=== PATIENT | female | born 1975 | race African-American/Black ===

== ENCOUNTER 2018-09-06 13:29 | Emergency (ER) | payer OTHER ==
[~2018-09-06] VITALS: Ht 167.6 cm; Wt 74.8 kg
[~2018-09-06 13:29] MED LIST: PREN-59
[2018-09-06 14:19] VITALS: BP 116/69
[2018-09-06] MEDS ORDERED: KETOROLAC TROMETHAMINE INJ 30 MG/ML VIAL ONE (17:58)
[2018-09-06] MEDS ORDERED: KETOROLAC TROMETHAMINE INJ 60 MG/2 ML VIAL IM ONE (18:00)
--- NOTE | 2018-09-06 18:00 | NUR ---
PENDING HCG BEFORE TORADOL ADMIN
== END 2018-09-06 18:33 | disposition home or self-care (01) ==
LOC: ER 13:33
DX: S33.9XXA Sprain of unspecified parts of lumbar spine and pelvis, initial encounter (principal); X58.XXXA Exposure to other specified factors, initial encounter; Y93.89 Activity, other specified; Y92.89 Other specified places as the place of occurrence of the external cause; Y99.8 Other external cause status
CPT/HCPCS: 84703; 96372; 99283; A4606; J1885; Z7610

== ENCOUNTER 2019-01-17 15:21 | Emergency (ER) | payer MEDICAID, OTHER ==
[~2019-01-17] VITALS: Ht 162.6 cm; Wt 61.2 kg
[2019-01-17 15:21] VITALS: BP 105/69
== END 2019-01-17 17:34 | disposition home or self-care (01) ==
LOC: ER 15:25
DX: M54.6 Pain in thoracic spine (principal); G89.29 Other chronic pain

== ENCOUNTER 2019-01-25 14:41 | Emergency (ER) | payer MEDICAID ==
[~2019-01-25] VITALS: Ht 160 cm; Wt 66.7 kg
[2019-01-25 14:59] VITALS: BP 114/70
--- NOTE | 2019-01-25 16:06 | NUR ---
Patient discharged to home in stable condition. Written and verbal after care instructions given. Patient verbalizes understanding of instruction.
== END 2019-01-25 16:08 | disposition home or self-care (01) ==
LOC: ER 14:44
DX: M48.02 Spinal stenosis, cervical region (principal); M51.27 Other intervertebral disc displacement, lumbosacral region; G89.29 Other chronic pain

== ENCOUNTER 2019-01-30 16:45 | Emergency (ER) | payer MEDICAID ==
[~2019-01-30] VITALS: Ht 160 cm; Wt 67.1 kg
[2019-01-30 17:15] VITALS: BP 118/79
== END 2019-01-30 18:43 | disposition home or self-care (01) ==
LOC: ER 16:45
DX: H92.01 Otalgia, right ear (principal); G89.29 Other chronic pain; M54.2 Cervicalgia

== ENCOUNTER 2020-06-28 10:54 | Emergency (ER) | payer MEDICAID ==
[~2020-06-28] VITALS: Ht 160 cm; Wt 63.5 kg
[2020-06-28 11:07] VITALS: BP 127/74
--- NOTE | 2020-06-28 11:11 | NUR ---
SEEN AND EXAMINED BY .
--- NOTE | 2020-06-28 11:17 | NUR ---
PT IS WHEELED TO CT SCAN.
--- NOTE | 2020-06-28 11:54 | NUR ---
Patient discharged to home in stable condition. Written and verbal after care instructions given. Patient verbalizes understanding of instruction.
== END 2020-06-28 11:55 | disposition home or self-care (01) ==
LOC: ER 11:01
DX: R09.89 Other specified symptoms and signs involving the circulatory and respiratory systems (principal); J02.9 Acute pharyngitis, unspecified; R13.10 Dysphagia, unspecified; G89.29 Other chronic pain; M54.9 Dorsalgia, unspecified
CPT/HCPCS: 70490-TC

== ENCOUNTER 2021-08-28 12:22 | Emergency (ER) | payer MEDICAID, OTHER ==
[~2021-08-28] VITALS: Ht 160 cm; Wt 68.0 kg
[2021-08-28 12:42] VITALS: BP 119/74
--- NOTE | 2021-08-28 12:43 | NUR ---
To ER bed 12, c/o R foot pain (burning) on and off since the start of august. denies trauma, aaox3, breathing even and non labored, connected to monitor
[2021-08-28] MEDS ORDERED: KETOROLAC TROMETHAMINE INJ 30 MG/ML VIAL ONE (13:57)
[2021-08-28] MEDS ORDERED: KETOROLAC TROMETHAMINE INJ 30 MG/ML VIAL IM ONE (14:00)
[2021-08-28] MEDS ORDERED: IBUP-1955 PO (14:48)
== END 2021-08-28 15:04 | disposition home or self-care (01) ==
LOC: ER 12:27
DX: M25.571 Pain in right ankle and joints of right foot (principal); G89.29 Other chronic pain
CPT/HCPCS: 73610; 96372; 99283; J1885